=== PATIENT | female | born 1990 ===

== ENCOUNTER 2018-06-20 08:59 | Emergency (ER) | payer BC, SELFPAY ==
[2018-06-20] MEDS ORDERED: Ondansetron ODT 4 MG TAB ONE (10:27)
[2018-06-20] MEDS ORDERED: Lidocaine Viscous Sol 2% 15 ml UD Cup ONE (10:27)
[2018-06-20] MEDS ORDERED: Mag-Al 1200 mg/1200 mg/30 ML UDCUP ONE (10:27)
[2018-06-20 11:04] LABS: #Lymphocytes 1.5 thou/uL (1.20-3.40); #Monocytes 0.4 thou/uL (0.11-0.59); #Neutrophils 3.9 thou/uL (1.40-6.50); %Basophils 0.4 % (0.0-1.0); %Eosinophils 0.6 % (0.0-10.0); %Lymphocytes 25.3 % (21.0-51.0); %Monocytes 6.7 % (0.0-10.0); %Neutrophils 67.1 % (42.0-75.0); Hemoglobin 14.8 g/dL (12.0-16.0); Mean Corpuscular HGB CONC 32.2 g/dL (32.0-36.0); Mean Corpuscular Hemoglobin 30.2 pg (27.0-31.0); Mean Corpuscular Volume 93.8 fL (78.0-98.0); Mean Platelet Volume 8.1 fL (7.4-10.4); Platelet Count 173 thou/uL (130-400); RBC Distribution Width 10.8 % (11.5-14.5); Red Blood Cell (RBC) Count 4.89 mill/uL (4.20-5.40); White Blood Cell (WBC) Count 5.8 thou/uL (4.8-10.8)
[2018-06-20 11:07] LABS: BHCG - Serum Negative (NEGATIVE); Pregs Control Background? CLEAR/WHITE (CLR/WHITE); Pregs Control Bar Appear? YES (CONTROL BAR)
[2018-06-20 11:13] LABS: Bilirubin Negative (Negative); Blood, Urine Negative (Negative); Clarity CLEAR (Clear); Glucose, Urine (Dipstick) Negative (Negative); Leukocyte Negative (Negative); Nitrite Negative (Negative); Protein, Urine (Dipstick) Negative (Neg-Trace); Specific Gravity, Urine 1.006 (1.002-1.036); Urobilinogen 0.2 mg/dL (0.2-1.0); pH, Urine 6.5 (5.0-9.0)
[2018-06-20 11:17] LABS: Amphetamine Not Detected (NotDetected); Barbiturates Screen Not Detected (NotDetected); Benzodiazepine Screen Not Detected (NotDetected); Cocaine Metabolite Screen Not Detected (NotDetected); Medtox Control Line Valid? VALID (VALID); Medtox Reader # READER 1; Methadone Not Detected (NotDetected); Methamphetamine Not Detected (NotDetected); Opiate Screen Not Detected (NotDetected); Oxycodone Screen Not Detected (NotDetected); Phencyclidine (PCP) Not Detected (NotDetected); THC/Cannabinoid Screen Not Detected (NotDetected); Tricyclic Screen Not Detected (NotDetected)
[2018-06-20 11:21] LABS: ALT (SGPT) 15 U/L (8-55); AST (SGOT) 17 U/L (5-34); Acetaminophen Less than 6.0 mcg/mL (10.0-30.0); Albumin 4.6 g/dL (3.5-5.0); Alcohol Less than 10 mg/dL (Less than 10); Alkaline Phosphatase 67 U/L (40-150); Anion Gap 9 mmol/L (10-20); BUN (Urea Nitrogen) 10 mg/dL (7.0-18.7); Bilirubin, Total 0.5 mg/dL (0.2-1.2); Calc. Creatinine Clearance 0 mL/min (70-130); Carbon Dioxide 30 mmol/L (22-29); Chloride 103 mmol/L (98-107); Estimated GFR-MDRD 85; Globulin 2.9 g/dL (2.4-3.5); Glucose 78 mg/dL (70-105); Lipase 27 U/L (8-78); Potassium 4.2 mmol/L (3.5-5.1); Protein, Total 7.5 g/dL (6.0-8.3); Salicylate Less than 8.0 mg/dL (15.0-30.0); Sodium 138 mmol/L (136-145)
[2018-06-20 11:31] LABS: Thyroid Stimulating Hormone 1.7753 uIU/mL (0.35-4.94)
== END 2018-06-20 13:36 | disposition home or self-care (01) ==
LOC: ERS 08:59
DX: K21.9 Gastro-esophageal reflux disease without esophagitis (principal); F41.9 Anxiety disorder, unspecified; F17.210 Nicotine dependence, cigarettes, uncomplicated
CPT/HCPCS: 36415; 80053; 80306; 80307; 81003; 83690; 84443; 84703; 85025; 99283; Q0162